=== PATIENT | female | born 1940 | race Caucasian/White ===

== ENCOUNTER 2018-06-18 18:18 | Emergency (ER) | payer MEDICARE ==
[~2018-06-18] VITALS: Ht 167.6 cm; Wt 72.7 kg
[~2018-06-18 18:18] MED LIST: BUPR150T6 PO; DIVA250T8 PO
[2018-06-18] MEDS ORDERED: AZIT-72 PO (21:14)
[2018-06-18 22:01] VITALS: BP 153/89
== END 2018-06-18 21:54 | disposition home or self-care (01) ==
LOC: ER 18:19
DX: J34.89 Other specified disorders of nose and nasal sinuses (principal); Z88.0 Allergy status to penicillin; Z88.2 Allergy status to sulfonamides; Z79.899 Other long term (current) drug therapy
CPT/HCPCS: 99284